=== PATIENT | female | born 1975 ===

== ENCOUNTER → 2019-04-12 | Day surgery (SDC) | payer OTHER ==
[~2019-04-12] MED LIST: KEFLEX500 MG PO; TOFRANIL10 MG; ULTRACET PO; ZANTAC300 MG
== END | disposition home or self-care (01) ==
LOC: ADM 04-09 08:30 → CIR.AMB 06:00
DX: K80.10 Calculus of gallbladder with chronic cholecystitis without obstruction (principal); K42.9 Umbilical hernia without obstruction or gangrene

== ENCOUNTER 2019-04-18 10:58 | Emergency (ER) | payer OTHER ==
[~2019-04-18] VITALS: Ht 160 cm; Wt 98.9 kg
== END 2019-04-18 12:44 | disposition home or self-care (01) ==
LOC: ER 10:58
DX: L29.8 Other pruritus (principal)